=== PATIENT | male | born 1995 | race Hispanic/Latino ===

== ENCOUNTER 2022-03-09 19:22 | Emergency (ER) | payer SELFPAY ==
[2022-03-09] MEDS ORDERED: Boostrix 0.5 ML (Tdap) VIAL ONE (21:23)
[2022-03-09] MEDS ORDERED: Lidocaine 1% (PF) 30 ML VIAL ONE (21:23)
[2022-03-09] MEDS ORDERED: Clindamycin 150 MG CAP ONE ×2 (21:23→21:28)
[2022-03-09] MEDS ORDERED: Bacitracin 1 PK ONE (22:57)
== END 2022-03-09 23:10 | disposition home or self-care (01) ==
LOC: MADERS 19:22
DX: S01.511A Laceration without foreign body of lip, initial encounter (principal); W22.8XXA Striking against or struck by other objects, initial encounter
CPT/HCPCS: 12013; 40650; 90471; 90715; J2001

== ENCOUNTER 2022-12-02 13:48 | Emergency (ER) | payer SELFPAY | END 2022-12-02 14:39 | disposition home or self-care (01) | LOC: MADERS 13:48 | DX: J02.9 Acute pharyngitis, unspecified (principal); E78.2 Mixed hyperlipidemia | CPT/HCPCS: 99282 ==

== ENCOUNTER 2022-12-05 20:01 | Emergency (ER) | payer SELFPAY ==
[2022-12-05] MEDS ORDERED: Lidocaine Viscous Sol 2% 15 ml UD Cup ONE (22:06)
[2022-12-05] MEDS ORDERED: Dexamethasone 10 MG/ML VIAL ONE (22:06)
== END 2022-12-05 22:33 | disposition home or self-care (01) ==
LOC: MADERS 20:01
DX: J02.9 Acute pharyngitis, unspecified (principal); E78.2 Mixed hyperlipidemia
CPT/HCPCS: 87081; 87430; 96372; 99283; J1100

== ENCOUNTER 2023-06-22 08:52 | Emergency (ER) | payer SELFPAY ==
[~2023-06-22 08:52] MED LIST: Iopamidol 370 76% 100 ML VIAL ONE
[2023-06-22] MEDS ORDERED: Ondansetron PF 4 MG/2 ML Vial ONE (09:43)
[2023-06-22] MEDS ORDERED: Sodium Chloride 0.9% 1,000 ML ONE (09:43)
[2023-06-22 09:48] LABS: #Basophils 0.1 thou/uL (0.0-0.2); #Eosinphils 0.3 thou/uL (0.0-0.7); #Lymphocytes 1.9 thou/uL (1.20-3.40); #Monocytes 0.6 thou/uL (0.11-0.59); #Neutrophils 2.4 thou/uL (1.40-6.50); %Basophils 1.9 % (0.0-1.0); %Eosinophils 5.3 % (0.0-10.0); %Monocytes 11.6 % (0.0-10.0); %Neutrophils 45.2 % (42.0-75.0); Hemoglobin 13.5 g/dL (14.0-18.0); Mean Corpuscular Hemoglobin 28.6 pg (27.0-31.0); Mean Corpuscular Volume 89.3 fl (78.0-98.0); Mean Platelet Volume 7.7 fL (7.4-10.4); Platelet Count 254 10x3/uL (130-400); RBC Distribution Width 12.4 % (11.5-14.5); Red Blood Cell (RBC) Count 4.71 mill/uL (4.70-6.10); White Blood Cell (WBC) Count 5.2 10x3/uL (4.8-10.8)
[2023-06-22 10:07] LABS: ALT (SGPT) 12 U/L (8-55); AST (SGOT) 15 U/L (5-34); Albumin 4.3 g/dL (3.5-5.0); Alkaline Phosphatase 52 U/L (40-110); Anion Gap 13 mmol/L (10-20); BUN (Urea Nitrogen) 13 mg/dL (8.9-20.6); Bilirubin, Total 0.4 mg/dL (0.2-1.2); Calc. Creatinine Clearance 0 mL/min (70-130); Carbon Dioxide 23 mmol/L (22-29); Chloride 105 mmol/L (98-107); Estimated GFR 124; Globulin 2.8 g/dL (2.4-3.5); Glucose 110 mg/dL (70-105); Lipase 28 U/L (8-78); Magnesium 1.9 mg/dL (1.6-2.6); Potassium 4.1 mmol/L (3.5-5.1); Protein, Total 7.1 g/dL (6.0-8.3); Sodium 137 mmol/L (136-145)
[2023-06-22 10:25] LABS: Bilirubin Negative (Negative); Blood, Urine Negative (Negative); Clarity Clear (Clear); Glucose, Urine (Dipstick) Negative (Negative); Ketone, Urine Negative (Negative); Leukocyte Negative (Negative); Nitrite Negative (Negative); Protein, Urine (Dipstick) Negative (Neg-Trace); Specific Gravity, Urine 1.015 (1.005-1.030); Urobilinogen 0.2 mg/dL (Less than 2); pH, Urine 7.5 (5.0-9.0)
[2023-06-22 10:37] LABS: Bacteria/HPF Rare-Few HPF (None Seen); CAUTI Indications for Culture Dysuria,urgency,freq; RBC/HPF None Seen HPF (0-3); Squamous Epithelial 0-3 HPF (0-3); Urine Culture Reflex No No; WBC/HPF 0-3 HPF (0-3)
== END 2023-06-22 10:46 | disposition home or self-care (01) ==
LOC: MADERS 08:52
DX: R10.9 Unspecified abdominal pain (principal); R11.2 Nausea with vomiting, unspecified
CPT/HCPCS: 74177; 80053; 81001; 83690; 83735; 85025; 96361; 96374; J2405; J7050; Q9967

== ENCOUNTER 2023-08-20 15:10 | Emergency (ER) | payer SELFPAY ==
[2023-08-20 16:05] LABS: #Basophils 0.1 thou/uL (0.0-0.2); #Eosinphils 0.3 thou/uL (0.0-0.7); #Lymphocytes 2.4 thou/uL (1.20-3.40); #Monocytes 0.6 thou/uL (0.11-0.59); #Neutrophils 2.3 thou/uL (1.40-6.50); %Basophils 1.7 % (0.0-1.0); %Eosinophils 6.1 % (0.0-10.0); %Lymphocytes 41.8 % (21.0-51.0); %Monocytes 10.8 % (0.0-10.0); %Neutrophils 39.5 % (42.0-75.0); Hematocrit 44.7 % (42.0-52.0); Hemoglobin 14.5 g/dL (14.0-18.0); Mean Corpuscular HGB CONC 32.5 g/dL (32.0-36.0); Mean Corpuscular Hemoglobin 28.4 pg (27.0-31.0); Mean Corpuscular Volume 87.6 fl (78.0-98.0); Mean Platelet Volume 7.3 fL (7.4-10.4); Platelet Count 330 10x3/uL (130-400); RBC Distribution Width 12.2 % (11.5-14.5); White Blood Cell (WBC) Count 5.7 10x3/uL (4.8-10.8)
[2023-08-20 16:25] LABS: ALT (SGPT) 12 U/L (8-55); AST (SGOT) 18 U/L (5-34); Albumin 4.5 g/dL (3.5-5.0); Alkaline Phosphatase 55 U/L (40-110); Anion Gap 16 mmol/L (10-20); BUN (Urea Nitrogen) 14 mg/dL (8.9-20.6); Bilirubin, Total 0.2 mg/dL (0.2-1.2); Calc. Creatinine Clearance 0 mL/min (70-130); Calcium 9.5 mg/dL (7.8-10.44); Carbon Dioxide 23 mmol/L (22-29); Chloride 103 mmol/L (98-107); Estimated GFR 110; Globulin 3.2 g/dL (2.4-3.5); Glucose 110 mg/dL (70-105); Lipase 34 U/L (8-78); Potassium 3.9 mmol/L (3.5-5.1); Protein, Total 7.7 g/dL (6.0-8.3); Sodium 138 mmol/L (136-145)
[2023-08-20 17:18] LABS: Bilirubin Negative (Negative); Blood, Urine Negative (Negative); Clarity Clear (Clear); Glucose, Urine (Dipstick) Negative (Negative); Ketone, Urine Negative (Negative); Leukocyte Negative (Negative); Nitrite Negative (Negative); Protein, Urine (Dipstick) Negative (Neg-Trace); Specific Gravity, Urine 1.025 (1.005-1.030); Urobilinogen 0.2 mg/dL (Less than 2)
[2023-08-20 17:22] LABS: CAUTI Indications for Culture Pelvic or flank pain; RBC/HPF None Seen HPF (0-3); Squamous Epithelial 0-3 HPF (0-3); WBC/HPF None Seen HPF (0-3)
[2023-08-20 17:23] LABS: Urine Culture Reflex No No
== END 2023-08-20 17:52 | disposition home or self-care (01) ==
LOC: MADERS 15:10
DX: M79.18 Myalgia, other site (principal); R09.1 Pleurisy; E78.2 Mixed hyperlipidemia
CPT/HCPCS: 36415; 71045; 80053; 81001; 83690; 85025